=== PATIENT | female | born 1990 | race Caucasian/White ===

== ENCOUNTER 2020-11-13 07:57 | Emergency (ER) | payer BC, OTHER ==
[~2020-11-13 07:57] MED LIST: COLACE 100MG C100 MG PO; CYCLOBENZAPRINE5 MG PO; TORADOL 10 MG T10 MG PO
[2020-11-13 09:18] LABS: HEMOGLOBIN 14.5 gm/dl (12.3-15.3); RED BLOOD COUNT 4.65 M/UL (4.00-5.10)
[2020-11-13 09:40] LABS: BUN/CREATININE RATIO 25 (0-10)
[2020-11-13] MEDS ORDERED: IBUPROFEN600 MG PO (10:46)
[2020-11-13] MEDS ORDERED: CYCLOBENZAPRINE10 MG PO (10:46)
[2020-11-14] MEDS ORDERED: NORCO 5-325 TA1 EACH PO (16:28)
== END 2020-11-13 11:50 | disposition home or self-care (01) ==
LOC: ER1 07:57
PROVIDERS: Emergency Medicine
DX: M54.5 Low back pain (principal)
CPT/HCPCS: 80053; 81001; 84703; 85025; 96374; 96375; 99283; J2270; J2405

== ENCOUNTER 2020-11-14 11:02 | Emergency (ER) | payer BC, OTHER ==
[~2020-11-14 11:02] MED LIST changes: +CYCLOBENZAPRINE10 MG PO; +IBUPROFEN600 MG PO
[2020-11-14 12:51] LABS: RED BLOOD COUNT 4.58 M/UL (4.00-5.10); WHITE BLOOD COUNT 5.8 K/UL (4.5-11.0)
[2020-11-14 13:02] LABS: BUN/CREATININE RATIO 36 (0-10)
[2020-11-14] MEDS ORDERED: NORCO 5-325 TA1 EACH PO (16:28)
== END 2020-11-14 16:41 | disposition home or self-care (01) ==
LOC: ER1 11:02
PROVIDERS: Emergency Medicine
DX: M51.26 Other intervertebral disc displacement, lumbar region (principal); E83.59 Other disorders of calcium metabolism; R10.9 Unspecified abdominal pain; Z88.5 Allergy status to narcotic agent
CPT/HCPCS: 72131; 80048; 81001; 84703; 85025; 85379; 85652; 86140; 96374; 99284; J1885

== ENCOUNTER → 2021-05-08 | Outpatient (CLI) | payer BC, OTHER ==
[~2021-05-08] MED LIST changes: +NORCO 5-325 TA1 EACH PO
== END ==
LOC: US 09:22
DX: O99.891 Other specified diseases and conditions complicating pregnancy (principal); M79.89 Other specified soft tissue disorders
CPT/HCPCS: 93971

== ENCOUNTER 2021-10-23 16:30 | Inpatient (IN) | payer BC, OTHER ==
[~2021-10-23] VITALS: Ht 170.2 cm; Wt 102.5 kg
[2021-10-23 17:16] LABS: HEMOGLOBIN 11.3 gm/dl (12.3-15.3); RED BLOOD COUNT 3.67 M/UL (4.00-5.10); WHITE BLOOD COUNT 9.5 K/UL (4.5-11.0)
== END 2021-10-25 16:31 | disposition home or self-care (01) | DRG 807 ==
LOC: GENOP 16:30 → OB 16:55
PROVIDERS: ADMIT Obstetrics & Gynecology
PROC: 10E0XZZ Delivery of Products of Conception, External Approach (ICD-10-PCS; principal; 2021-10-24)
PROC: 10907ZC Drainage of Amniotic Fluid, Therapeutic from Products of Conception, Via Natural or Artificial Opening (ICD-10-PCS; 2021-10-24)
PROC: 3E033VJ Introduction of Other Hormone into Peripheral Vein, Percutaneous Approach (ICD-10-PCS; 2021-10-24)
PROC: 3E0234Z Introduction of Serum, Toxoid and Vaccine into Muscle, Percutaneous Approach (ICD-10-PCS; 2021-10-24)
PROC: 3E02340 Introduction of Influenza Vaccine into Muscle, Percutaneous Approach (ICD-10-PCS; 2021-10-24)
DX: O80 Encounter for full-term uncomplicated delivery (principal); Z37.0 Single live birth; Z20.822 Contact with and (suspected) exposure to COVID-19; Z3A.39 39 weeks gestation of pregnancy; Z23 Encounter for immunization
CPT/HCPCS: 36415; 81001; 82800; 85014; 85018; 85025; 85461; 86850; 86900; 86901; 90686; 90715; J2590; J2790; J7120